=== PATIENT | female | born 1935 | race Caucasian/White ===

== ENCOUNTER 2016-09-18 09:27 | Outpatient (CLI) | payer MEDICARE, OTHER ==
[2016-09-18 11:25] LABS: ALT (SGPT) 26 U/L (0-55); AST (SGOT) 21 U/L (5-34); Alkaline Phosphatase 79 U/L (40-150); Anion Gap 14 mmol/L (10-20); BUN (Urea Nitrogen) 14 mg/dL (9.8-20.1); Bilirubin, Total 0.7 mg/dL (0.2-1.2); Calc. Creatinine Clearance 0 mL/min (70-130); Calcium 9.4 mg/dL (7.8-10.44); Carbon Dioxide 26 mmol/L (23-31); Chloride 104 mmol/L (98-107); Estimated GFR-MDRD 76; Globulin 2.5 g/dL (2.4-3.5); LDL Cholesterol, Calculated 98 mg/dL; Protein, Total 6.7 g/dL (5.8-8.1)
[2016-09-18 11:43] LABS: #Eosinphils 0.2 thou/uL (0.0-0.7); #Lymphocytes 2.3 thou/uL (1.20-3.40); #Monocytes 0.4 thou/uL (0.11-0.59); #Neutrophils 3.5 thou/uL (1.40-6.50); %Basophils 0.7 % (0.0-1.0); %Eosinophils 3.4 % (0.0-10.0); %Monocytes 6.6 % (0.0-10.0); Hematocrit 48.8 % (36.0-47.0); Mean Platelet Volume 7.3 fL (7.4-10.4); Red Blood Cell (RBC) Count 5.59 mill/uL (4.20-5.40); White Blood Cell (WBC) Count 6.4 thou/uL (4.8-10.8)
[2016-09-18 11:54] LABS: Hemoglobin A1c 5.7 % (4.0-6.0)
== END 2016-09-18 09:28 | disposition home or self-care (01) ==
LOC: BURLAB 09:27
PROVIDERS: ATTEND Family Medicine
DX: E78.5 Hyperlipidemia, unspecified (principal); E03.9 Hypothyroidism, unspecified; R71.8 Other abnormality of red blood cells; R20.2 Paresthesia of skin; Z79.899 Other long term (current) drug therapy
CPT/HCPCS: 36415; 80053; 80061; 83036; 84439; 84443; 85025

== ENCOUNTER 2017-03-01 09:08 | Outpatient (CLI) | payer MEDICARE, OTHER ==
[2017-03-01 16:28] LABS: ALT (SGPT) 15 U/L (8-55); AST (SGOT) 16 U/L (5-34); Albumin 4.1 g/dL (3.4-4.8); Alkaline Phosphatase 87 U/L (40-150); Bilirubin, Direct 0.3 mg/dL (0.1-0.3); Bilirubin, Total 0.8 mg/dL (0.2-1.2); Cardiac Risk 3.3 (Less than 4.5); Cholesterol 148 mg/dl (< 200 Desired); HDL Cholesterol 45 mg/dL (>60 Neg Risk); LDL Cholesterol, Calculated 79 mg/dL; Protein, Total 6.6 g/dL (6.0-8.3); Triglycerides 120 mg/dL (Less than 150)
== END 2017-03-01 09:09 | disposition home or self-care (01) ==
LOC: LABLEX 09:08
PROVIDERS: ATTEND Family Medicine
DX: E78.5 Hyperlipidemia, unspecified (principal); E03.9 Hypothyroidism, unspecified
CPT/HCPCS: 80061; 80076; 84443

== ENCOUNTER 2022-01-26 13:33 | Outpatient (CLI) | payer MEDICARE | END 2022-01-26 13:34 | disposition home or self-care (01) | LOC: BURRAD 13:33 | PROVIDERS: ATTEND Surgery | DX: S22.009A Unspecified fracture of unspecified thoracic vertebra, initial encounter for closed fracture (principal) | CPT/HCPCS: 72070 ==

== ENCOUNTER 2022-02-03 15:26 | Emergency (ER) | payer MEDICARE ==
[2022-02-03] MEDS ORDERED: Fleet Enema 133 ML BOT ONE (16:31)
== END 2022-02-03 18:30 | disposition home or self-care (01) ==
LOC: BURERS 15:26
DX: K59.00 Constipation, unspecified (principal); E78.5 Hyperlipidemia, unspecified; E03.9 Hypothyroidism, unspecified
CPT/HCPCS: 74176